=== PATIENT | male | born 1980 | race Two or more races ===

== ENCOUNTER 2020-01-11 08:58 | Emergency (ER) | payer MEDICAID, OTHER ==
[~2020-01-11] VITALS: Ht 167.6 cm; Wt 117.9 kg
[2020-01-11] MEDS ORDERED: LIDOCAINE 2% 20 ML MDV ONE (09:08)
[2020-01-11] MEDS ORDERED: TDAP [DIPH/PERTUSSIS/TET] 0.5 ML VIAL IM ONE ×2 (09:23→09:30)
[2020-01-11] MEDS ORDERED: LIDOCAINE HCL/PF 1% 30 ML VIAL TP ONE (09:30)
--- NOTE | 2020-01-11 09:32 | NUR ---
DR. RUZI AT BEDSIDE FOR LAC REPAIR.
[2020-01-11] MEDS ORDERED: NEOMY SULF/BACITRAC ZN/POLY 15 GM TUBE TP SCH (10:00)
[2020-01-11] MEDS ORDERED: BENZOIN COMPOUND TINCT 60 ML BOTTLE ONE (10:32)
--- NOTE | 2020-01-11 11:01 | NUR ---
Patient's finger cleansed, covered with dry dressing, splinted. Patient a/ox4, no distress noted, discharged to home in stable condition. Written and verbal after care instructions given. Patient verbalizes understanding of instruction.
[2020-01-11 11:03] VITALS: BP 144/91
== END 2020-01-11 11:04 | disposition home or self-care (01) ==
LOC: ER 09:00
DX: S61.217A Laceration without foreign body of left little finger without damage to nail, initial encounter (principal); S60.352A Superficial foreign body of left thumb, initial encounter; S61.205A Unspecified open wound of left ring finger without damage to nail, initial encounter; W22.8XXA Striking against or struck by other objects, initial encounter; Y93.89 Activity, other specified; Y92.89 Other specified places as the place of occurrence of the external cause; Y99.8 Other external cause status
CPT/HCPCS: 12002; 73130; 90471; 90715; 99283; A6403; J3490 ×2